=== PATIENT | female | born 1975 | race Caucasian/White ===

== ENCOUNTER 2017-03-07 11:57 | Inpatient (IN) | payer MEDICAID ==
[~2017-03-07] VITALS: Ht 152.4 cm; Wt 83.3 kg
[2017-03-07] MEDS ORDERED: SODIUM BICARBONATE 1 MEQ/ML, 50ML VIAL IVPush ONE (12:30)
[2017-03-07] MEDS ORDERED: ONDANSETRON 2MG/ML, 2ML IM ONE (12:30)
[2017-03-07] MEDS ORDERED: SODIUM CHLORIDE 0.9% 1,000ML IVBOLUS ONE (12:30)
[2017-03-07] MEDS ORDERED: PLEASE ENTER WEIGHT MC SCH (13:00)
[2017-03-07 13:11] LABS: BLOOD UREA NITROGEN 9 mg/dL (7-18)
[2017-03-07 13:18] LABS: ASPARTATE AMINO TRANSFERASE 8 U/L (15-37)
[2017-03-07 13:46] LABS: IS PT STATUS REG ER OR PRE ER? YES
[2017-03-07] MEDS ORDERED: REGULAR INSULIN 62.5 UNITS in SODIUM CHLORIDE 0.9% 249.375 ML IV PRN (13:47)
[2017-03-07] MEDS ORDERED: SODIUM BICARBONATE 1 MEQ/ML, 50ML VIAL ONE (14:12)
[2017-03-07] MEDS ORDERED: ONDANSETRON 2MG/ML, 2ML ONE (14:12)
[2017-03-07] MEDS ORDERED: HYDROmorphone 1 MG/ML, 1ML ONE (14:15)
[2017-03-07] MEDS ORDERED: LORazepam 2 MG/ML, 1ML ONE (14:26)
[2017-03-07] MEDS ORDERED: SODIUM CHLORIDE 0.9% 1,000 ML IV SCH (14:55)
[2017-03-07] MEDS ORDERED: BISACODYL 10 MG SUPP PR PRN (15:00)
[2017-03-07] MEDS ORDERED: ONDANSETRON 2MG/ML, 2ML IVPush PRN (15:00)
[2017-03-07] MEDS ORDERED: LORazepam 2 MG/ML, 1ML IVPush ONE (15:00)
[2017-03-07] MEDS ORDERED: POLYETHYLENE GLYCOL 17 GM PACKET PO PRN (15:00)
[2017-03-07] MEDS ORDERED: HYDROmorphone 1 MG/ML, 1ML IM ONE (15:00)
[2017-03-07] MEDS ORDERED: ENOXAPARIN 40 MG/0.4 ML ONE (16:09)
[2017-03-07] MEDS: ENOXAPARIN 40 MG/0.4 ML SQ SCH (16:16)
[2017-03-07 17:20] VITALS: BP 131/81
[2017-03-07 18:14] LABS: BLOOD UREA NITROGEN 7 mg/dL (7-18)
[2017-03-07] MEDS ORDERED: POTASSIUM CHLORIDE 20 MEQ TAB.ER.PRT PO ONE (19:00)
[2017-03-07] MEDS: FAMOTIDINE 20 MG TABLET PO SCH (19:52)
[2017-03-07] MEDS: ACETAMINOPHEN 325 MG TABLET PO PRN (19:53)
[2017-03-07 21:18] LABS: BLOOD UREA NITROGEN 6 mg/dL (7-18)
[2017-03-07] MEDS ORDERED: D5%-0.45% NACL 1,000 ML IV SCH (23:30)
[2017-03-08 01:32] LABS: BLOOD UREA NITROGEN 5 mg/dL (7-18)
[2017-03-08] MEDS: REGULAR INSULIN 62.5 UNITS in SODIUM CHLORIDE 0.9% 249.375 ML IV PRN ×2 (01:36→12:13)
[2017-03-08] MEDS ORDERED: GUAIFENESIN/DM 100-10MG, 5ML UDC PO PRN (03:30)
[2017-03-08] MEDS: ACETAMINOPHEN 325 MG TABLET PO PRN ×4 (03:56→23:28)
[2017-03-08 05:26] LABS: ASPARTATE AMINO TRANSFERASE 9 U/L (15-37); BLOOD UREA NITROGEN 4 mg/dL (7-18)
[2017-03-08] MEDS ORDERED: POTASSIUM CHLORIDE 20 MEQ TAB.ER.PRT PO ONE ×3 (06:00→10:00)
[2017-03-08] MEDS ORDERED: D5%-0.45NACL+KCL 40MEQ 1,000 ML IV SCH (06:00)
[2017-03-08] MEDS: FAMOTIDINE 20 MG TABLET PO SCH ×2 (09:59→21:30)
[2017-03-08 11:12] LABS: BLOOD UREA NITROGEN 3 mg/dL (7-18)
[2017-03-08] MEDS ORDERED: MAGNESIUM SULFATE PMX 4GM/100M 100 ML IVPB ONE (12:30)
[2017-03-08] MEDS ORDERED: POTASSIUM PHOSPHATE 88 MEQ in SODIUM CHLORIDE 0.9% 1,000 ML IV ONE (12:30)
[2017-03-08 14:25] LABS: BLOOD UREA NITROGEN 2 mg/dL (7-18)
[2017-03-08] MEDS: ENOXAPARIN 40 MG/0.4 ML SQ SCH (14:34)
[2017-03-08] MEDS: D5%-0.45NACL+KCL 40MEQ 1,000 ML IV SCH ×2 (15:19→23:24)
[2017-03-08 19:31] LABS: BLOOD UREA NITROGEN 1 mg/dL (7-18)
[2017-03-08] MEDS: AMOXICILLIN 500 MG CAPSULE PO SCH (20:13)
[2017-03-08] MEDS: GUAIFENESIN/COD200MG-20MG/10ML LIQUID PO PRN (21:30)
[2017-03-08 23:04] LABS: BLOOD UREA NITROGEN 1 mg/dL (7-18)
[2017-03-09 03:09] LABS: ASPARTATE AMINO TRANSFERASE 9 U/L (15-37); BLOOD UREA NITROGEN 1 mg/dL (7-18)
[2017-03-09] MEDS: ACETAMINOPHEN 325 MG TABLET PO PRN ×2 (04:21→12:41)
[2017-03-09] MEDS: AMOXICILLIN 500 MG CAPSULE PO SCH ×4 (04:27→21:00)
[2017-03-09] MEDS ORDERED: POTASSIUM PHOSPHATE 88 MEQ in SODIUM CHLORIDE 0.9% 1,000 ML IV ONE (04:30)
[2017-03-09] MEDS: REGULAR INSULIN 62.5 UNITS in SODIUM CHLORIDE 0.9% 249.375 ML IV PRN (05:42)
[2017-03-09 06:54] LABS: BLOOD UREA NITROGEN 1 mg/dL (7-18)
[2017-03-09] MEDS ORDERED: POTASSIUM PHOSPHATE 44 MEQ in SODIUM CHLORIDE 0.9% 500 ML IV ONE (07:00)
[2017-03-09] MEDS: D5%-0.45NACL+KCL 40MEQ 1,000 ML IV SCH (07:34)
[2017-03-09] MEDS ORDERED: POTASSIUM CHLORIDE 20 MEQ TAB.ER.PRT PO ONE (11:00)
[2017-03-09 11:24] LABS: BLOOD UREA NITROGEN 1 mg/dL (7-18)
[2017-03-09] MEDS: FAMOTIDINE 20 MG TABLET PO SCH ×2 (12:32→21:17)
[2017-03-09] MEDS: D5%-0.45NACL+KCL 20MEQ 1,000 ML IV SCH (12:32)
[2017-03-09 15:16] LABS: BLOOD UREA NITROGEN 1 mg/dL (7-18)
[2017-03-09] MEDS: ENOXAPARIN 40 MG/0.4 ML SQ SCH (17:22)
[2017-03-09 19:14] LABS: BLOOD UREA NITROGEN 1 mg/dL (7-18)
[2017-03-09] MEDS: GUAIFENESIN/COD200MG-20MG/10ML LIQUID PO PRN (21:16)
[2017-03-10] MEDS ORDERED: TEMAZEPAM 15 MG CAPSULE ONE (00:42)
[2017-03-10] MEDS: TEMAZEPAM 15 MG CAPSULE PO PRN (00:46)
[2017-03-10] MEDS: D5%-0.45NACL+KCL 20MEQ 1,000 ML IV SCH (01:54)
[2017-03-10 03:43] LABS: BLOOD UREA NITROGEN 3 mg/dL (7-18)
[2017-03-10] MEDS: ACETAMINOPHEN 325 MG TABLET PO PRN ×3 (05:22→20:39)
[2017-03-10] MEDS: FAMOTIDINE 20 MG TABLET PO SCH (07:39)
[2017-03-10] MEDS: AMOXICILLIN 500 MG CAPSULE PO SCH ×3 (07:39→20:39)
[2017-03-10] MEDS ORDERED: SODIUM PHOSPHATE 20 MMOL in SODIUM CHLORIDE 0.9% 500 ML IV ONE (09:30)
[2017-03-10] MEDS ORDERED: POTASSIUM CHLORIDE 20 MEQ TAB.ER.PRT PO ONE (09:30)
[2017-03-10] MEDS: INSULIN DETEMIR 100 UNITS/ML, PEN SQ-INSULIN SCH ×2 (11:30→20:46)
[2017-03-10] MEDS: INSULIN ASPART 100 UNITS/ML, PEN SQ-INSULIN SCH ×3 (11:31→20:46)
[2017-03-10] MEDS: ENOXAPARIN 40 MG/0.4 ML SQ SCH (16:20)
[2017-03-10 17:26] VITALS: BP 111/78
[2017-03-10 19:49] VITALS: BP 104/66
[2017-03-11 02:32] VITALS: BP 114/78
[2017-03-11] MEDS: TEMAZEPAM 15 MG CAPSULE PO PRN (02:34)
[2017-03-11] MEDS: ACETAMINOPHEN 325 MG TABLET PO PRN ×3 (02:37→21:03)
[2017-03-11 05:23] LABS: BLOOD UREA NITROGEN 4 mg/dL (7-18)
[2017-03-11] MEDS ORDERED: POTASSIUM CHLORIDE 20 MEQ TAB.ER.PRT PO ONE (07:00)
[2017-03-11] MEDS: INSULIN ASPART 100 UNITS/ML, PEN SQ-INSULIN SCH ×4 (07:22→21:01)
[2017-03-11 08:29] VITALS: BP 125/81
[2017-03-11] MEDS: AMOXICILLIN 500 MG CAPSULE PO SCH ×3 (09:05→21:00)
[2017-03-11] MEDS: INSULIN DETEMIR 100 UNITS/ML, PEN SQ-INSULIN SCH ×2 (09:12→22:37)
[2017-03-11] MEDS: GUAIFENESIN/COD200MG-20MG/10ML LIQUID PO PRN (10:51)
[2017-03-11] MEDS ORDERED: LEVO175T5 PO (10:55)
[2017-03-11] MEDS: LEVOTHYROXINE 175 MCG TABLET PO SCH (12:07)
[2017-03-11 12:48] VITALS: BP 106/67
[2017-03-11] MEDS ORDERED: ENOXAPARIN 40 MG/0.4 ML SQ SCH (16:00)
[2017-03-11 19:28] VITALS: BP 108/78
[2017-03-12 00:49] VITALS: BP 116/79
[2017-03-12 06:30] LABS: BLOOD UREA NITROGEN 3 mg/dL (7-18)
[2017-03-12] MEDS: LEVOTHYROXINE 175 MCG TABLET PO SCH (06:40)
[2017-03-12] MEDS: ACETAMINOPHEN 325 MG TABLET PO PRN (06:43)
[2017-03-12] MEDS ORDERED: POTASSIUM CHLORIDE 20 MEQ TAB.ER.PRT PO ONE (07:00)
[2017-03-12] MEDS: INSULIN ASPART 100 UNITS/ML, PEN SQ-INSULIN SCH ×2 (07:00→11:46)
[2017-03-12 08:02] VITALS: BP 109/71
[2017-03-12] MEDS: INSULIN DETEMIR 100 UNITS/ML, PEN SQ-INSULIN SCH (09:31)
[2017-03-12] MEDS: AMOXICILLIN 500 MG CAPSULE PO SCH (09:31)
[2017-03-12] MEDS ORDERED: INSU100I28 SQ-INSULIN (09:53)
[2017-03-12] MEDS ORDERED: AMOX-291 PO (09:53)
[2017-03-12] MEDS ORDERED: INSU100I18 SQ-INSULIN (09:53)
[2017-03-12 11:58] VITALS: BP 108/74
== END 2017-03-12 12:50 | disposition home or self-care (01) | DRG 639 ==
LOC: ED 13:50 → EDIP 13:51 → ED 14:04 → CCU 16:28 → 4NOR 03-10 17:46 → DCLOUNGE 03-12 12:37
PROVIDERS: ADMIT Hospitalist; ATTEND Hospitalist
PROC: 02HV33Z Insertion of Infusion Device into Superior Vena Cava, Percutaneous Approach (ICD-10-PCS; principal; 2017-03-07)
PROC: B548ZZA Ultrasonography of Superior Vena Cava, Guidance (ICD-10-PCS; 2017-03-07)
DX: E13.10 Other specified diabetes mellitus with ketoacidosis without coma (principal); J02.0 Streptococcal pharyngitis; E03.9 Hypothyroidism, unspecified; E83.42 Hypomagnesemia; E83.39 Other disorders of phosphorus metabolism; E87.6 Hypokalemia; E86.0 Dehydration; Z79.4 Long term (current) use of insulin; Z83.3 Family history of diabetes mellitus
CPT/HCPCS: 36415; 36556; 71010; 80048; 80053; 81001; 82010; 82800; 82962; 83036; 83690; 83735; 83880; 84100; 84443; 84484; 84703; 85025; 87081; 87086; 87147; 87880; 93005; 96361; 96365; 96372; 96375; J1170; J1650; J1815; J2060; J3475; J3480; J7030; J7040; J7050

== ENCOUNTER → 2017-05-17 | Outpatient (CLI) | payer OTHER ==
[~2017-05-17] MED LIST: AMOX-291 PO; INSU100I18 SQ-INSULIN; INSU100I28 SQ-INSULIN; LEVO175T5 PO
== END | disposition home or self-care (01) ==
LOC: RAD 09:31
PROVIDERS: ATTEND Internal Medicine Hematology & Oncology
DX: R76.12 Nonspecific reaction to cell mediated immunity measurement of gamma interferon antigen response without active tuberculosis (principal)

== ENCOUNTER 2017-08-18 11:02 | Emergency (ER) | payer MEDICAID, OTHER ==
[~2017-08-18] VITALS: Ht 154.9 cm; Wt 88.0 kg
[2017-08-18] MEDS ORDERED: KETOROLAC 30 MG/1 ML ONE (11:23)
[2017-08-18] MEDS ORDERED: HYDROmorphone 1 MG/ML, 1ML ONE (11:23)
[2017-08-18] MEDS ORDERED: ONDANSETRON 2MG/ML, 2ML ONE (11:24)
[2017-08-18] MEDS: HYDROmorphone 1 MG/ML, 1ML IVPush PRN ×2 (11:26→12:08)
[2017-08-18] MEDS ORDERED: KETOROLAC 30 MG/1 ML IVPush ONE (11:30)
[2017-08-18] MEDS ORDERED: SODIUM CHLORIDE FLUSH 10ML SYR IVF ONE (11:30)
[2017-08-18] MEDS ORDERED: ONDANSETRON 2MG/ML, 2ML IVPush ONE (11:30)
[2017-08-18 12:45] VITALS: BP 109/67
== END 2017-08-18 13:10 | disposition home or self-care (01) ==
LOC: ED 12:12
DX: S39.012A Strain of muscle, fascia and tendon of lower back, initial encounter (principal); E11.9 Type 2 diabetes mellitus without complications; X58.XXXA Exposure to other specified factors, initial encounter; Y93.89 Activity, other specified; Y92.89 Other specified places as the place of occurrence of the external cause; Y99.8 Other external cause status
CPT/HCPCS: 72110; 96374; 96375; 96376; 99284; J1170; J1885; J2405

== ENCOUNTER → 2019-07-30 | Outpatient (CLI) | payer OTHER ==
[~2019-07-30] MED LIST changes: +AMOX500T PO; +ATOR40TA PO; +HYDR12.517 PO; +IBUP-1223 PO; +INSU100C SQ-INSULIN; +INSU100V13 SC; +LIDOCAINE 1%, 20ML ONE; +SODIUM BICARBONATE 4.0%, 5ML ONE
== END | disposition home or self-care (01) ==
LOC: CFH 13:09
PROVIDERS: ATTEND Surgery
DX: N64.52 Nipple discharge (principal); N63.22 Unspecified lump in the left breast, upper inner quadrant
CPT/HCPCS: 19285; 76642; 77065; J3490

== ENCOUNTER 2019-08-03 07:14 | Day surgery (SDC) | payer OTHER ==
[~2019-08-03] VITALS: Ht 149.9 cm; Wt 91.2 kg
[~2019-08-03 07:14] MED LIST changes: -AMOX500T PO; -ATOR40TA PO; +BUPIVACAINE/PF 0.5% ONE; -HYDR12.517 PO; -IBUP-1223 PO; -LIDOCAINE 1%, 20ML ONE; -SODIUM BICARBONATE 4.0%, 5ML ONE
[2019-08-03] MEDS ORDERED: LACTATED RINGERS 1,000 ML IV SCH (07:51)
[2019-08-03] MEDS ORDERED: HYDR12.517 PO (08:00)
[2019-08-03] MEDS ORDERED: LIDOCAINE-MPF 1%, 2ML INFIL ONE (08:00)
[2019-08-03] MEDS ORDERED: ACETAMINOPHEN 500 MG TABLET PO ONE (08:00)
[2019-08-03] MEDS ORDERED: ATOR40TA PO (08:00)
[2019-08-03] MEDS ORDERED: AMOX500T PO (08:00)
[2019-08-03] MEDS ORDERED: GABAPENTIN 300 MG CAPSULE PO ONE (08:00)
[2019-08-03] MEDS ORDERED: IBUP-1223 PO (08:02)
[2019-08-03 08:13] VITALS: BP 112/86
[2019-08-03] MEDS ORDERED: PLEASE ENTER HEIGHT AND WEIGHT MC SCH (08:30)
[2019-08-03] MEDS ORDERED: MIDAZOLAM 1 MG/ML, 2ML ONE (08:30)
[2019-08-03] MEDS ORDERED: FENTANYL PF 100 MCG/2ML ONE (08:31)
[2019-08-03] MEDS ORDERED: KETOROLAC 30 MG/1 ML ONE (08:41)
[2019-08-03] MEDS ORDERED: ONDANSETRON 2MG/ML, 2ML ONE (08:41)
[2019-08-03] MEDS ORDERED: PROPOFOL 10 MG/ML, 20ML ONE ×2 (08:52→08:53)
[2019-08-03] MEDS ORDERED: EPINEPHRINE 1 MG/ML, 1ML INFIL ONE (08:54)
[2019-08-03] MEDS ORDERED: SUCCINYLCHOLINE 20 MG/ML, 10ML ONE ×2 (08:54)
[2019-08-03] MEDS ORDERED: CEFAZOLIN 1,000 MG ONE ×2 (08:56)
[2019-08-03] MEDS ORDERED: LIDOCAINE-MPF 2% ,5ML ONE ×2 (08:57)
[2019-08-03] MEDS ORDERED: DEXAMETHASONE 4 MG/ML, 1ML ONE ×4 (08:59→09:00)
[2019-08-03] MEDS ORDERED: hydrALAzine 20 MG/ML, 1ML IV PRN (09:00)
[2019-08-03] MEDS ORDERED: EPHEDRINE 50 MG/ML, 1ML IVPush PRN (09:00)
[2019-08-03] MEDS ORDERED: LABETALOL 5MG/ML, 20ML IV PRN (09:00)
[2019-08-03] MEDS ORDERED: HYDROmorphone 2 MG/ML, 1ML IVPush PRN (09:00)
[2019-08-03] MEDS ORDERED: OXYcodone 5 MG/5 ML ORAL.SOL UDC PO PRN (09:00)
[2019-08-03] MEDS ORDERED: ONDANSETRON 2MG/ML, 2ML IV PRN (09:00)
[2019-08-03] MEDS ORDERED: PROMETHAZINE 25 MG/ML, 1ML IV PRN (09:00)
[2019-08-03] MEDS ORDERED: MEPERIDINE/PF 25MG/ML,1ML IVPush PRN (09:00)
[2019-08-03] MEDS ORDERED: FENTANYL PF 100 MCG/2ML IV PRN (09:00)
== END 2019-08-03 13:10 | disposition home or self-care (01) ==
LOC: OUT 07:14
PROVIDERS: ATTEND Surgery
DX: D24.2 Benign neoplasm of left breast (principal); N60.42 Mammary duct ectasia of left breast; N61.0 Mastitis without abscess; E11.9 Type 2 diabetes mellitus without complications; E03.9 Hypothyroidism, unspecified; E78.5 Hyperlipidemia, unspecified; I10 Essential (primary) hypertension; Z79.890 Hormone replacement therapy; Z79.4 Long term (current) use of insulin; Z79.899 Other long term (current) drug therapy; Z90.710 Acquired absence of both cervix and uterus; Z98.890 Other specified postprocedural states
CPT/HCPCS: 19301; 76098; 82962; 88307; J0171; J0330; J0690; J1100; J1885; J2250; J2405; J2704; J3010; J7120

== ENCOUNTER 2020-08-06 13:50 | Emergency (ER) | payer MEDICAID, OTHER ==
[~2020-08-06] VITALS: Ht 149.9 cm; Wt 92.2 kg
[~2020-08-06 13:50] MED LIST changes: +AMOX500T PO; +ATOR40TA PO; -BUPIVACAINE/PF 0.5% ONE; +HYDR12.517 PO; +IBUP-1223 PO
--- NOTE | 2020-08-06 14:09 | NUR ---
ER PROVIDER AT BEDSIDE FOR EVALUATION.
--- NOTE | 2020-08-06 14:12 | NUR ---
PATIENT WALKED BACK FROM TRIAGE WITH CHIEF C/O STIFFNESS FROM RIGHT UPPER NECK DOWN RIGHT SHOULDER AND ARM, AND RIGHT KNEE AND FOOT PAIN. PATIENT WAS RECENTLY DIAGNOSED WITH PLANTAR FASCITITIS. PATIENT STATES NOTHING AT HOME IS WORKING FOR THE PAIN. NO SIGNS OF ACUTE DISTRESS, CONNECTED TO VITALS MACHINE, CALL LIGHT WITHIN REACH.
[2020-08-06] MEDS ORDERED: METHOCARBAMOL 750 MG TABLET ONE (14:19)
[2020-08-06] MEDS ORDERED: KETOROLAC 30 MG/1 ML ONE (14:19)
--- NOTE | 2020-08-06 14:29 | NUR ---
PATIENT TO IMAGING.
[2020-08-06] MEDS ORDERED: KETOROLAC 30 MG/1 ML IM ONE (14:30)
[2020-08-06] MEDS ORDERED: METHOCARBAMOL 750 MG TABLET PO ONE (14:30)
--- NOTE | 2020-08-06 14:49 | NUR ---
TASK RN: MEDICATED FOR NECK AND RIGHT ARM 07/09 WITH EAST.
[2020-08-06 15:54] VITALS: BP 120/77
--- NOTE | 2020-08-06 15:55 | NUR ---
Patient given discharge instructions and prescription and they have confirmed that they understand the instructions. All patient belongings gathered and taken with patient. Patient ambulatory with steady gait from ED.
== END 2020-08-06 15:56 | disposition home or self-care (01) ==
LOC: ED 14:20
DX: S16.1XXA Strain of muscle, fascia and tendon at neck level, initial encounter (principal); M72.2 Plantar fascial fibromatosis; E11.9 Type 2 diabetes mellitus without complications; Z86.39 Personal history of other endocrine, nutritional and metabolic disease; X58.XXXA Exposure to other specified factors, initial encounter; Y93.89 Activity, other specified; Y92.89 Other specified places as the place of occurrence of the external cause; Y99.8 Other external cause status
CPT/HCPCS: 72050; 73030; 96372; 99284; J1885

== ENCOUNTER 2020-08-28 09:35 | Emergency (ER) | payer MEDICAID ==
[~2020-08-28] VITALS: Ht 149.9 cm; Wt 91.2 kg
--- NOTE | 2020-08-28 09:58 | NUR ---
JAM DAIGLE IN TO SEE PT. AWAITING ORDERS.
--- NOTE | 2020-08-28 10:31 | NUR ---
WARM BLANKETS PROVIDED, CALL LIGHT WITHIN REACH. PT UPDATED ON POC.
--- NOTE | 2020-08-28 11:10 | NUR ---
LAB IN TO DRAW.
--- NOTE | 2020-08-28 11:14 | NUR ---
report received from ROBERT Grey, this RN assuming care. pt a&o, resps even and unlabored. lab at bedside for draw. awaiting results and dispo.
[2020-08-28 11:27] LABS: BASOPHILS % (AUTO) 1 % (0-1); EOSINOPHILS % (AUTO) 1 % (1-7); LYMPHOCYTES % (AUTO) 26 % (22-44); MEAN CORPUSCULAR HEMOGLOBIN 30.6 pg (27.0-34.8); MEAN CORPUSCULAR HGB CONC 34.7 g/dL (32.4-35.8); MEAN PLATELET VOLUME 8.7 fL (7.4-10.4); MONOCYTES % (AUTO) 11 % (2-9); NEUTROPHILS % (AUTO) 61 % (42-75); PLATELET COUNT 243 x10^3/uL (130-400); RED CELL DISTRIBUTION WIDTH 13.2 % (9.6-15.2)
[2020-08-28 11:28] LABS: MD NO
[2020-08-28 11:36] LABS: ALANINE AMINOTRANSFERASE 46 U/L (12-78); ALBUMIN 3.4 g/dL (3.4-5.0); ANION GAP 8 mmol/L (5-15); CALCIUM 8.7 mg/dL (8.5-10.1); CHLORIDE 104 mmol/L (98-107); CREATININE 0.77 mg/dL (0.55-1.02)
[2020-08-28 11:40] LABS: ALKALINE PHOSPHATASE 244 U/L (45-117); BILIRUBIN,TOTAL 0.5 mg/dL (0.2-1.0); TOTAL PROTEIN 7.9 g/dL (6.4-8.2)
--- NOTE | 2020-08-28 12:02 | NUR ---
PT RESTING ON GURNEY, A&O, RESPS EVEN AND UNLABORED. BP AND SPO2 MONITORS IN PLACE. CALL LIGHT IN REACH. AWAITING LABS AND DISPO.
[2020-08-28 12:59] VITALS: BP 131/87
--- NOTE | 2020-08-28 13:34 | NUR ---
PT GIVEN DC INSTRUCTIONS, EDUCATED REGARDING RETURN CRITERIA AND ISOLATION PRECAUTIONS. PT IS A&OX4, RESPS EVEN AND UNLABORED, ABLE TO SPEAK IN FULL SENTENCES WITHOUT DIFFICULTY. PT AMBULATORY TO DC WITH STEADY GAIT, ALL QUESTIONS ANSWERED.
== END 2020-08-28 13:35 | disposition home or self-care (01) ==
LOC: ED 10:10
DX: B34.9 Viral infection, unspecified (principal); Z20.828 Contact with and (suspected) exposure to other viral communicable diseases; M79.10 Myalgia, unspecified site; R06.02 Shortness of breath; R00.0 Tachycardia, unspecified; E11.9 Type 2 diabetes mellitus without complications
CPT/HCPCS: 36415; 71045; 80053; 82728; 83615; 85025; 87635; 99284